=== PATIENT | male | born 1960 | race Caucasian/White ===

== ENCOUNTER 2017-12-10 00:20 | Emergency (ER) | payer BC ==
[~2017-12-10] VITALS: Ht 177.8 cm; Wt 92.5 kg
[2017-12-10 00:34] VITALS: BP 127/81
[2017-12-10] MEDS ORDERED: SODIUM BICARBONATE 5 ML VIAL ONE (02:20)
[2017-12-10] MEDS ORDERED: LIDOCAINE 1%-EPI 1:100,000 20 ML VIAL ONE (02:20)
[2017-12-10] MEDS ORDERED: CEPHALEXIN MONOHYDRATE 500 MG CAPSULE PO ONE (02:53)
[2017-12-10] MEDS ORDERED: TDAP [DIPH/PERTUSSIS/TET] 0.5 ML VIAL IM ONE (02:53)
[2017-12-10] MEDS: TDAP [DIPH/PERTUSSIS/TET] 0.5 ML VIAL IM ONE (03:04)
[2017-12-10] MEDS: SODIUM BICARBONATE 5 ML VIAL TP ONE (03:04)
[2017-12-10] MEDS: CEPHALEXIN MONOHYDRATE 500 MG CAPSULE PO ONE (03:04)
[2017-12-10] MEDS: LIDOCAINE 1%-EPI 1:100,000 20 ML VIAL TP ONE (03:05)
== END 2017-12-10 03:08 | disposition home or self-care (01) ==
LOC: ER 00:26
DX: S01.81XA Laceration without foreign body of other part of head, initial encounter (principal); S05.12XA Contusion of eyeball and orbital tissues, left eye, initial encounter; I10 Essential (primary) hypertension; W20.8XXA Other cause of strike by thrown, projected or falling object, initial encounter; Y93.89 Activity, other specified; Y92.89 Other specified places as the place of occurrence of the external cause; Y99.8 Other external cause status
CPT/HCPCS: 90715; A4606; A6402; J3490; Z7610